=== PATIENT | female | born 1980 | race Two or more races ===

== ENCOUNTER 2018-11-16 05:34 | Inpatient (IN) | payer OTHER ==
[~2018-11-16] VITALS: Ht 172.7 cm; Wt 2.7 kg
[~2018-11-16 05:34] MED LIST: ALDOMET500 MG PO; CALCITRIOL0.5 MCG PO; SYNTHROID88 MCG
== END 2018-11-19 14:21 | disposition home or self-care (01) | DRG 783 ==
LOC: OB/GYN 05:34 → LDR 05:34 → O/R 10:40 → OB/GYN 11:23
PROVIDERS: ADMIT Specialist
PROC: 0UL70ZZ Occlusion of Bilateral Fallopian Tubes, Open Approach (ICD-10-PCS; 2018-11-16)
PROC: 4A1HXCZ Monitoring of Products of Conception, Cardiac Rate, External Approach (ICD-10-PCS; 2018-11-16)
PROC: 10D00Z1 Extraction of Products of Conception, Low, Open Approach (ICD-10-PCS; principal; 2018-11-16 09:00)
DX: O82 Encounter for cesarean delivery without indication (principal); O60.14X0 Preterm labor third trimester with preterm delivery third trimester, not applicable or unspecified; Z3A.36 36 weeks gestation of pregnancy; Z37.0 Single live birth; Z30.2 Encounter for sterilization